=== PATIENT | male | born 1980 | race Caucasian/White ===

== ENCOUNTER 2018-01-13 10:27 | Emergency (ER) | payer OTHER ==
[2018-01-13 10:37] VITALS: BP 152/78; PULSE 61; RESP 18; TEMP 97.8; O2SAT 97
[2018-01-13] MEDS ORDERED: SODIUM CHLORIDE 0.9% FLUSH 10 ML FLUSH IVF PRN (11:30)
--- NOTE | 2018-01-13 11:44 | PD ---
HPI Chief Complaint: Complaint Time Seen by Provider: 11:07 Travel History International Travel<30 days: No Contact w/Intl Traveler<30days: No Traveled to known affect area: No History of Present Illness HPI 37-year-old male presents emergency department for evaluation of right testicular pain that he woke up this morning. States that the pain was initially located in the right testicle but radiated to the right lower quadrant. Says he was at breakfast this morning when the pain increased and this is when he decided to come to the emergency department. Says that the pain is intermittent lasting 5-10 minutes without palliative or provocative factors. Says his pain was 8/10, aching. Says that the pain is minimal at this point and is located in the right pelvic and right lower quadrant area. Says that he has had "tingling" when he urinates for weeks associated with cloudy urine. Says he went to urgent care last week and had a urinalysis and STI check. Says that these were normal and negative. He denies any penile discharge. Says he has 2-3 partners unprotected sex in the last 2 months. Says that bowel movements have been normal. Denies fever, chills, nausea, vomiting, diarrhea. He denies history of surgeries except for a vasectomy 12 years ago. He admits that since this vasectomy he has had occasional similar pain that resolves spontaneously. [facility] Social History Alcohol Use: No Tobacco Use: No Substance Use: No Allergies-Medications (Allergen,Severity, Reaction): Coded Allergies: No Known Allergies (Unverified , 01/13/18) Review of Systems Except as stated in HPI: all other systems reviewed are Neg Physical Exam Narrative GENERAL: WD, WN in NAD, resting comfortably in bed SKIN: Focused skin assessment warm/dry. incidental rash to right side of face HEAD: Atraumatic. Normocephalic. EYES: Pupils equal and round. No scleral icterus. No injection or drainage. ENT: No nasal bleeding or discharge. Mucous membranes pink and moist. NECK: Trachea midline. No JVD. No lymphadenopathy CARDIOVASCULAR: Regular rate and rhythm. No murmur appreciated. RESPIRATORY: No accessory muscle use. Clear to auscultation. Breath sounds equal bilaterally. GASTROINTESTINAL: Abdomen soft, non-tender, nondistended. Hepatic and splenic margins not palpable. Normoactive BS : performed with Linda, RN in the room. B/L scrotum without edema, erythema. no TTP. No masses or rashes. 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 circumcised penis. No penile discharge. MUSCULOSKELETAL: No obvious deformities. No clubbing. No cyanosis. No edema. NEUROLOGICAL: Awake and alert. No obvious cranial nerve deficits. Motor grossly within normal limits. Normal speech. PSYCHIATRIC: Appropriate mood and affect; insight and judgment normal. Data Data Last Documented VS Vital Signs Date Time Temp Pulse Resp B/P (MAP) Pulse Ox O2 Delivery O2 Flow Rate FiO2 01/13/18 13:12 100 01/13/18 10:37 97.8 61 18 152/78 (102) Orders Orders Urinalysis - C+S If Indicated (01/13/18 11:26) Gc And Chlamydia Pcr (01/13/18 11:26) Sodium Chloride 0.9% Flush (Ns Flush) (01/13/18 11:30) Ct Abd/Pel W/O Iv Contrast (01/13/18 ) Ed Discharge Order (01/13/18 13:03) Labs Laboratory Tests Test 01/13/18 11:40 Urine Color YELLOW Urine Turbidity CLEAR Urine pH 6.0 Urine Specific [place] 1.015 Urine Protein NEG mg/dL Urine Glucose (UA) NEG mg/dL Urine Ketones NEG mg/dL Urine Occult Blood LARGE Urine Nitrite NEG Urine Bilirubin NEG Urine Urobilinogen LESS THAN 2.0 MG/DL Urine Leukocyte Esterase NEG Urine RBC /hpf Urine WBC LESS THAN 1 /hpf Urine Bacteria RARE /hpf Urine Mucus FEW /lpf Microscopic Urinalysis Comment CULT NOT INDICATED Chlamydia trachomatis DNA (PCR) NOT DETECTED Neisseria gonorrhoeae DNA (PCR) NOT DETECTED MDM Medical Decision Making Medical Screen Exam Complete: Yes Emergency Medical Condition: Yes Differential Diagnosis Chlamydia, gonorrhea, urinary tract infection, nephrolithiasis, hydrocele, varicocele Narrative Course 37-year-old male presents emergency department for evaluation of right testicular pain that he woke up this morning. States that the pain was initially located in the right testicle and radiated to the right lower quadrant. Says he was at breakfast this morning and the pain increased and this is when he decided to come to the emergency department. Says that the pain is intermittent lasting 5-10 minutes without palliative or provocative factors. Says his pain was 8/10, aching. Says that the pain is minimal at this point and is located in the right pelvic and right lower quadrant area. Says that he has had "tingling" when he urinates for weeks associated with cloudy urine. Says he went to urgent care last week and had a urinalysis and STI check. Says that these were normal and negative. He denies any penile discharge. Says he has 2-3 partners unprotected sex in the last 2 months. Says that bowel movements have been normal. Denies fever, chills, nausea, vomiting, diarrhea. He denies history of surgeries except for a vasectomy 12 years ago. He admits that since this vasectomy he has had occasional similar pain. Vital signs are stable. Physical exam findings demonstrate a well-developed, obese 37-year-old male in no acute distress upon arrival. CT abdomen pelvis ordered to assess for a kidney stone. Last Impressions Abdomen/Pelvis CT 01/13/18 0000 Signed Impressions: CONCLUSION: 1. Mild hydronephrosis of the right collecting system. No obstructing renal or ureteral calculi. 2. Fatty infiltration of the liver. UA with large blood, rare bacteria. Patient be discharged and advised to follow with the primary care physician. It is likely that he has or had a kidney stone causing his pain. I advised that he should take plenty of fluid. I also advised that she may have a recurrence of his pain may take anti-inflammatories. Return for worsening or persistent symptoms. Diagnosis Primary Impression: Kidney stone Referrals: Primary Care Physician Additional Instructions: Ensure adequate fluid intake and proper nutrition. Drink plenty water. Tylenol Motrin for pain. Disposition: 01 DISCHARGE HOME Condition: Stable Lisa Brooke January 13, 2018 11:44
--- NOTE | 2018-01-13 12:09 | RADRPT ---
EXAM DATE: 01/13/2018 12:02 PM EDT AGE/SEX: 37 years / Male INDICATIONS: Right lower quadrant pain, cloudy urine. CLINICAL DATA: This is the patient's initial encounter. Patient reports that signs and symptoms have been present for 1 day and indicates a pain score of 6/10. MEDICAL/SURGICAL HISTORY: None. None. RADIATION DOSE: 32.08 CTDI (mGy) COMPARISON: No prior [facility] exams available for comparison. TECHNIQUE: Multiple contiguous axial images were obtained through the abdomen. Images were obtained using multiple row detector helical technique. Using dose reduction techniques, radiation dose was ke pt as low as reasonably achievable to obtain optimal diagnostic quality images. Lack of IV contrast l imits the diagnosis for certain organ pathology. FINDINGS: Lower Lungs: The visualized lower lungs are clear. Liver: The liver has a homogeneous density without space-occupying lesion. There is no dilation of th e biliary tree. Mild fatty infiltration of the liver. Gallbladder is contracted. Spleen: Homogeneous density without enlargement. Pancreas: Unremarkable without mass or calcification. Kidneys: Normal in size and shape. No calcified renal stones are seen. There is some mild hydronephr osis of the right collecting system. No definite hydronephrosis of the left collecting system. There is some dilatation of the ureters bilaterally however no obstructing ureteral stones are seen. Adrenal Glands: Unremarkable. Aorta: The aorta and proximal iliac vessels are grossly unremarkable without aneurysmal dilation. Bowel/Mesentery: The bowel loops are grossly unremarkable. The cecum and sigmoid colon have a normal configuration. The appendix is unremarkable. No inflammatory changes. Abdominal Wall: Intact. Retroperitoneum: No evidence of adenopathy in the retrocrural, para-aortic, or deep pelvic regions. Bladder: Contours are smooth. No calcified stones. Reproductive Organs: No abnormal masses or calcifications seen. Inguinal: The inguinal region is unremarkable without evidence of adenopathy. Bony Structures: Unremarkable. CONCLUSION: 1. Mild hydronephrosis of the right collecting system. No obstructing renal or ureteral calculi. 2. Fatty infiltration of the liver. Electronically signed by: Ulises Brown MD 01/13/2018 12:08 PM EDT
[2018-01-13 12:39] LABS: BACTERIA, URINE RARE /hpf; BILIRUBIN, URINE NEG (NEG); BLOOD, URINE LARGE (NEG); GLUCOSE,URINE NEG (NEG); KETONE, URINE NEG (NEG); MUCUS URINE FEW /lpf (OCC); NITRITE,URINE NEG (NEG); URINE COLOR YELLOW (YELLW/STRAW); URINE LEUKOCYTE ESTERASE NEG (NEG)
--- NOTE | 2018-01-13 13:04 | PD ---
Data Data Last Documented VS Vital Signs Date Time Temp Pulse Resp B/P (MAP) Pulse Ox O2 Delivery O2 Flow Rate FiO2 01/13/18 10:37 97.8 61 18 152/78 (102) 97 Orders Orders Urinalysis - C+S If Indicated (01/13/18 11:26) Gc And Chlamydia Pcr (01/13/18 11:26) Sodium Chloride 0.9% Flush (Ns Flush) (01/13/18 11:30) Ct Abd/Pel W/O Iv Contrast (01/13/18 ) Labs Laboratory Tests Test 01/13/18 11:40 Urine Color YELLOW Urine Turbidity CLEAR Urine pH 6.0 Urine Specific [place] 1.015 Urine Protein NEG mg/dL Urine Glucose (UA) NEG mg/dL Urine Ketones NEG mg/dL Urine Occult Blood LARGE Urine Nitrite NEG Urine Bilirubin NEG Urine Urobilinogen LESS THAN 2.0 MG/DL Urine Leukocyte Esterase NEG Urine RBC /hpf Urine WBC LESS THAN 1 /hpf Urine Bacteria RARE /hpf Urine Mucus FEW /lpf Microscopic Urinalysis Comment CULT NOT INDICATED MDM Supervised Visit with JORDAN: Yes Narrative Course The history, exam, and medical decision-making in the associated mid-level provider note were completed with my assistance. I reviewed and agree with the findings presented. I attest that I had a [id number] encounter with the patient on the same day, and personally performed and documented my assessment and findings in the medical record. *My assessment and Findings: 37-year-old male with testicular right lower quadrant abdominal pain ongoing intermittently for couple days, some nausea vomiting, improved now. Cloudy urine as well. CT scan shows right-sided hydronephrosis but no definite stone. UA with hematuria. Likely renal lithiasis. Testicular exam is unremarkable. Outpatient follow-up. Disposition: 01 DISCHARGE HOME Condition: Stable Guilherme Greene MD January 13, 2018 13:04
== END 2018-01-13 13:20 | disposition home or self-care (01) ==
LOC: NEPD 10:27
DX: N50.811 Right testicular pain (principal); N13.30 Unspecified hydronephrosis; R31.9 Hematuria, unspecified; K76.0 Fatty (change of) liver, not elsewhere classified
CPT/HCPCS: 74176; 81001; 87491; 87591; 99284